=== PATIENT | female | born 1995 | race American Indian/Alaskan Native ===

== ENCOUNTER 2017-09-23 09:04 | Emergency (ER) | payer SELFPAY ==
[2017-09-23 12:18] LABS: Basophils % (Auto) 0.3 % (0.0-1.8); Eosinophils # (Auto) 0.1 K/mm3 (0.0-0.4); Hemoglobin 10.3 gm/dl (10.1-14.3); Lymphocytes # (Auto) 1.7 K/mm3 (1.2-5.4); Lymphocytes % (Auto) 23.6 % (13.4-35.0); Mean Corpuscular HGB Conc 33 % (30-34); Mean Corpuscular Hemoglobin 28 pg (28-32); Mean Corpuscular Volume 85 fl (79-97); Monocytes # (Auto) 0.4 K/mm3 (0.0-0.8); Monocytes % (Auto) 5.2 % (0.0-7.3); Platelet Count 176 K/mm3 (140-440); Red Blood Count 3.67 M/mm3 (3.65-5.03); Red Cell Distribution Width 14.3 % (13.2-15.2)
[2017-09-23 12:28] LABS: INR 0.93 (0.87-1.13)
[2017-09-23 12:29] LABS: Partial Thromboplastin Time 25.7 Sec. (24.2-36.6)
[2017-09-23] MEDS ORDERED: NACL 0.9% 1000 ML 1,000 ML IV ONE ×2 (12:40→13:12)
[2017-09-23 12:43] LABS: BUN/Creatinine Ratio 10; Blood Urea Nitrogen 5 mg/dL (7-17); Calcium 8.6 mg/dL (8.4-10.2); Creatine Kinase MB 1.6 ng/mL (0.0-4.0); Hemolysis Index 18
[2017-09-23 12:54] LABS: Free T4 (Free Thyroxine) 1.14 ng/dL (0.76-1.46)
[2017-09-23 13:41] LABS: Bacteria,Urine 1+ /HPF (Negative); Bilirubin,Urine NEG (Negative); Blood,Urine NEG (Negative); Color,Urine Yellow (Yellow); Mucus,Urine FEW /HPF; Protein,Urine <15 mg/dL mg/dL (Negative)
[2017-09-23] MEDS ORDERED: MACROBID PO ONE (13:50)
[2017-09-23 13:53] LABS: Amphetamine Screen,Urine PRESUMPTIVE NEGATIVE; Benzodiazepines Screen,Urine PRESUMPTIVE NEGATIVE; Cannabinoid Screen,Urine PRESUMPTIVE NEGATIVE; Cocaine Screen,Urine PRESUMPTIVE NEGATIVE; Methadone Screen,Urine PRESUMPTIVE NEGATIVE; Opiate Screen,Urine PRESUMPTIVE NEGATIVE
--- NOTE | 2017-09-23 14:34 | Ultrasound Report ---
FINAL REPORT EXAM: US OB > = 14 WEEKS FETUS HISTORY: no care TECHNIQUE: Obstetrical ultrasound was performed. PRIORS: None. FINDINGS: position is breech. Placental location is posterior. Negative for placenta previa. Negative for placental abruption. Amniotic fluid volume is normal. cardiac activity is identified, measured at 154 beats per minute. Measurements: BPD: 4.20 cm-18 weeks 5 days +/-12 days HC: 15.85 cm-18 weeks 5 days +/-10 days AC: 14.78 cm-20 weeks 0 days +/-14 days FL: 2.55 cm-17 weeks 5 days +/-10 days HC/AC: 1.07 (1.07-1.29) Avg age by US: 18 weeks 6 days which corresponds to ALEXANDER of 02/18/2018. Clinical age by LMP P (05/18/2017) is 18 weeks 2 days with ALEXANDER of 02/22/2018. Survey of anatomy: bladder, four-chamber heart, stomach, kidneys, ventricles, cerebellum/cisterna magna, diaphragm, three-vessel cord, cord insertion are documented in demonstrate no significant abnormality. Spine views are limited due to spine down position. The cervical length is normal at 3.9 cm. IMPRESSION: There is a single live intrauterine of approximately 8 weeks 6 days gestational age and ALEXANDER of 02/18/2018. Survey of anatomy demonstrates no significant abnormality. Spine views are limited due to spine down position.
--- NOTE | 2017-09-23 14:41 | Emergency Department Report ---
ED Palpitations HPI - General Chief Complaint: Arrhythmia/Palpitations Stated Complaint: HYPERTENSIVE Time Seen by Provider: 09/23/17 11:49 Source: patient Mode of arrival: Ambulatory Limitations: No Limitations - History of Present Illness Initial Comments: 22-year-old female presents to the hospital with her second approximately 4 weeks complaining of palpitations this morning. 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 While at school heart rate was noted to be fast and documented by RN in class however, she cannot recall the number. Pt stood up and took a couple of steps when symptoms began. Patient states she has had previous episodes of tachycardia that has spontaneously resolved with friends. She has not required any type of previous intubation. With this episode patient had associated shortness of breath and dizziness. Patient complains of intermittent vomiting associated with morning sickness but denies vaginal bleeding, dysuria, diarrhea, or persistent vomiting. Denies cp and sob prior to episode or currently. Patient had epistaxis from the left nare with palpitations earlier but bleeding has spontaneously resolved. No trauma reported. - Related Data Previous Rx's Medication Instructions Recorded Last Taken Type HYDROcodone/APAP 5-325 [[place] 1 each PO Q6HR PRN #12 tablet 10/06/13 Unknown Rx 5/325 mg] Nitrofurantoin [place]/M-Cryst 100 mg PO Q12HR #14 capsule 09/23/17 Unknown Rx [Macrobid CAP] Allergies Allergy/AdvReac Type Severity Reaction Status Date / Time No Known Allergies Allergy Verified 09/23/17 09:20 ED Review of Systems ROS: Stated complaint: HYPERTENSIVE Other details as noted in HPI Comment: All other systems reviewed and negative Other: Constitutional: No fevers chills or weight loss Eyes: No eye pain visual changes or discharge ENT: No ear pain or throat pain Neck: Denies pain Respiratory: Denies cough wheezing Cardiovascular: as per hpi GI: Denies abdominal pain, nausea, vomiting, diarrhea, constipation, melena hematochezia : Denies dysuria Musculoskeletal: Denies back pain, joint swelling Skin: Denies rash, lesions, erythema Neurologic: Denies headache, numbness, weakness Psychiatric: Denies suicidal ideation, hallucinations ED Past Medical Hx - Past Medical History Hx Hypertension: Yes ( induced htn) - Surgical History Past Surgical History?: No - Social History Smoking Status: Never Smoker Substance Use Type: None - Medications Home Medications: Home Medications Medication Instructions Recorded Confirmed Last Taken Type HYDROcodone/APAP 5-325 [[place] 1 each PO Q6HR PRN #12 tablet 10/06/13 Unknown Rx 5/325 mg] Nitrofurantoin [place]/M-Cryst 100 mg PO Q12HR #14 capsule 09/23/17 Unknown Rx [Macrobid CAP] ED Physical Exam - General Limitations: No Limitations - Other Other exam information: General: No limitations, patient is alert in no acute distress Head exam: Atraumatic, normocephalic Eyes exam: Normal appearance ENT: Moist mucous membrane, normal oropharynx Neck exam: Normal inspection, full range of motion Respiratory exam: Clear to auscultation bilateral, no wheezes, rales, crackles Cardiovascular: Normal rate and rhythm, normal heart sounds Abdomen: Soft, nondistended, and nontender, with normal bowel sounds, no rebound, or guarding Extremity: Full range of motion normal inspection no deformity, no calf tendernes/edema Back: Normal Inspection, full range of motion, no tenderness Neurologic: Alert, oriented x3, cranial nerves intact, no motor or sensory deficit Psychiatric: normal affect, normal mood Skin: Warm, dry, intact ED Course Vital Signs 09/23/17 09/23/17 09/23/17 09:21 12:01 12:10 Temperature 98.5 F Pulse Rate 81 Pulse Rate [ Lying] Pulse Rate [ Sitting] Pulse Rate [ Standing] Respiratory 18 Rate Blood Pressure 123/76 Blood Pressure [Lying] Blood Pressure [Sitting] Blood Pressure [Standing] O2 Sat by Pulse 100 100 100 Oximetry 09/23/17 09/23/17 09/23/17 12:11 12:14 12:16 Temperature Pulse Rate 101 H Pulse Rate [ 94 H Lying] Pulse Rate [ 103 H Sitting] Pulse Rate [ Standing] Respiratory 22 Rate Blood Pressure 129/74 Blood Pressure 116/60 [Lying] Blood Pressure 129/74 [Sitting] Blood Pressure [Standing] O2 Sat by Pulse 100 Oximetry 09/23/17 09/23/17 09/23/17 12:17 12:30 12:46 Temperature Pulse Rate 102 H 98 H Pulse Rate [ Lying] Pulse Rate [ Sitting] Pulse Rate [ 133 H Standing] Respiratory 21 21 Rate Blood Pressure 121/64 121/64 Blood Pressure [Lying] Blood Pressure [Sitting] Blood Pressure 133/88 [Standing] O2 Sat by Pulse 100 100 Oximetry 09/23/17 09/23/17 09/23/17 13:00 14:47 15:00 Temperature Pulse Rate 105 H Pulse Rate [ Lying] Pulse Rate [ Sitting] Pulse Rate [ Standing] Respiratory 25 H Rate Blood Pressure 121/60 117/70 Blood Pressure [Lying] Blood Pressure [Sitting] Blood Pressure [Standing] O2 Sat by Pulse 100 99 99 Oximetry 09/23/17 09/23/17 09/23/17 15:16 15:30 15:46 Temperature Pulse Rate Pulse Rate [ Lying] Pulse Rate [ Sitting] Pulse Rate [ Standing] Respiratory Rate Blood Pressure 121/60 122/64 122/64 Blood Pressure [Lying] Blood Pressure [Sitting] Blood Pressure [Standing] O2 Sat by Pulse 100 100 100 Oximetry ED Medical Decision Making - Lab Data Result diagrams: 09/23/17 12:05 09/23/17 12:05 Lab Results 09/23/17 09/23/17 09/23/17 Range/Units 12:05 12:05 12:05 WBC 7.2 (4.5-11.0) K/mm3 RBC 3.67 (3.65-5.03) M/mm3 Hgb 10.3 (10.1-14.3) gm/dl Hct 31.0 (30.3-42.9) % MCV 85 (79-97) fl MCH 28 (28-32) pg MCHC 33 (30-34) % RDW 14.3 (13.2-15.2) % Plt Count 176 (140-440) K/mm3 Lymph % (Auto) 23.6 (13.4-35.0) % [place] % (Auto) 5.2 (0.0-7.3) % Eos % (Auto) 1.0 (0.0-4.3) % Baso % (Auto) 0.3 (0.0-1.8) % Lymph # 1.7 (1.2-5.4) K/mm3 [place] # 0.4 (0.0-0.8) K/mm3 Eos # 0.1 (0.0-0.4) K/mm3 Baso # 0.0 (0.0-0.1) K/mm3 Seg Neutrophils % 69.9 (40.0-70.0) % Seg Neutrophils # 5.0 (1.8-7.7) K/mm3 PT 12.9 (12.2-14.9) Sec. INR 0.93 (0.87-1.13) APTT 25.7 (24.2-36.6) Sec. Sodium 137 (137-145) mmol/L Potassium 3.7 (3.6-5.0) mmol/L Chloride 102.8 (98-107) mmol/L Carbon Dioxide 23 (22-30) mmol/L Anion Gap 15 mmol/L BUN 5 L (7-17) mg/dL Creatinine 0.5 L (0.7-1.2) mg/dL Estimated GFR > 60 ml/min BUN/Creatinine Ratio 10 % Glucose 83 (65-100) mg/dL Calcium 8.6 (8.4-10.2) mg/dL Magnesium 1.70 (1.7-2.3) mg/dL Total Creatine Kinase 83 (30-135) units/L CK-MB (CK-2) 1.6 (0.0-4.0) ng/mL CK-MB (CK-2) Rel Index 1.9 (0-4) Troponin T < 0.010 (0.00-0.029) ng/mL TSH (0.270-4.200) mlU/mL Free T4 (0.76-1.46) ng/dL HCG, Quant (0-4) mIU/mL Urine Color (Yellow) Urine Turbidity (Clear) Urine pH (5.0-7.0) Ur Specific [place] (1.003-1.030) Urine Protein (Negative) mg/dL Urine Glucose (UA) (Negative) mg/dL Urine Ketones (Negative) mg/dL Urine Blood (Negative) Urine Nitrite (Negative) Urine Bilirubin (Negative) Urine Urobilinogen (<2.0) mg/dL Ur Leukocyte Esterase (Negative) Urine WBC (Auto) (0.0-6.0) /HPF Urine RBC (Auto) (0.0-6.0) /HPF U Epithel Cells (Auto) (0-13.0) /HPF Urine Bacteria (Auto) (Negative) /HPF Urine Mucus /HPF Urine Opiates Screen Urine Methadone Screen Ur Barbiturates Screen Ur Phencyclidine Scrn Ur Amphetamines Screen U Benzodiazepines Scrn Urine Cocaine Screen U Marijuana (THC) Screen Drugs of Abuse Note 0309/23/17 09/23/17 Range/Units 12:05 13:15 13:15 WBC (4.5-11.0) K/mm3 RBC (3.65-5.03) M/mm3 Hgb (10.1-14.3) gm/dl Hct (30.3-42.9) % MCV (79-97) fl MCH (28-32) pg MCHC (30-34) % RDW (13.2-15.2) % Plt Count (140-440) K/mm3 Lymph % (Auto) (13.4-35.0) % Hendricks % (Auto) (0.0-7.3) % Eos % (Auto) (0.0-4.3) % Baso % (Auto) (0.0-1.8) % Lymph # (1.2-5.4) K/mm3 [place] # (0.0-0.8) K/mm3 Eos # (0.0-0.4) K/mm3 Baso # (0.0-0.1) K/mm3 Seg Neutrophils % (40.0-70.0) % Seg Neutrophils # (1.8-7.7) K/mm3 PT (12.2-14.9) Sec. INR (0.87-1.13) APTT (24.2-36.6) Sec. Sodium (137-145) mmol/L Potassium (3.6-5.0) mmol/L Chloride (98-107) mmol/L Carbon Dioxide (22-30) mmol/L Anion Gap mmol/L BUN (7-17) mg/dL Creatinine (0.7-1.2) mg/dL Estimated GFR ml/min BUN/Creatinine Ratio % Glucose (65-100) mg/dL Calcium (8.4-10.2) mg/dL Magnesium (1.7-2.3) mg/dL Total Creatine Kinase (30-135) units/L CK-MB (CK-2) (0.0-4.0) ng/mL CK-MB (CK-2) Rel Index (0-4) Troponin T (0.00-0.029) ng/mL TSH 0.945 (0.270-4.200) mlU/mL Free T4 1.14 (0.76-1.46) ng/dL HCG, Quant 23541 H (0-4) mIU/mL Urine Color Yellow (Yellow) Urine Turbidity Clear (Clear) Urine pH 6.0 (5.0-7.0) Ur Specific [place] 1.014 (1.003-1.030) Urine Protein <15 mg/dl (Negative) mg/dL Urine Glucose (UA) Neg (Negative) mg/dL Urine Ketones Neg (Negative) mg/dL Urine Blood Neg (Negative) Urine Nitrite Neg (Negative) Urine Bilirubin Neg (Negative) Urine Urobilinogen 4.0 (<2.0) mg/dL Ur Leukocyte Esterase Mod (Negative) Urine WBC (Auto) 11.0 H (0.0-6.0) /HPF Urine RBC (Auto) 3.0 (0.0-6.0) /HPF U Epithel Cells (Auto) 1.0 (0-13.0) /HPF Urine Bacteria (Auto) 1+ (Negative) /HPF Urine Mucus Few /HPF Urine Opiates Screen Presumptive negative Urine Methadone Screen Presumptive negative Ur Barbiturates Screen Presumptive negative Ur Phencyclidine Scrn Presumptive negative Ur Amphetamines Screen Presumptive negative U Benzodiazepines Scrn Presumptive negative Urine Cocaine Screen Presumptive negative U Marijuana (THC) Screen Presumptive negative Drugs of Abuse Note Disclamer - Radiology Data Radiology results: report reviewed ultrasound, 18 weeks 6 days. Positive heart tones. Heart rate 154 - Medical Decision Making Palpitations Associated with standing Positive orthostatic vital signs Patient received 2 L of normal saline with improvement UTI Mild urine leukocytosis Macrobid provided Urine culture pending No care 18 week 6 day IUP identified on ultrasound No vaginal bleeding reported Other labs unremarkable Plan to discharge home to continue her vitamins, Macrobid, and ANIMAL TECH/OB follow-up - Differential Diagnosis dehydration, anemia, infection, orthostasis, PE, arrhythmia, thyroid Critical Care Time: No Critical care attestation.: If time is entered above; I have spent that time in minutes in the direct care of this critically ill patient, excluding procedure time. ED Disposition Clinical Impression: 18 weeks gestation of , UTI (urinary tract infection), Orthostasis Disposition: DC-01 TO HOME OR SELFCARE Is pt being admited?: No Does the pt Need Aspirin: No Condition: Stable Instructions: Palpitations (ED), (ED), Dehydration (ED) Additional Instructions: Take the antibiotic as prescribed. Continue drinking plenty of fluids. Follow BRIM STIFFENER doctor provided or with the doctor of your choice. Return is worsen as indicated by your discharge instructions Prescriptions: Nitrofurantoin [place]/M-Cryst [Macrobid CAP] 100 mg PO Q12HR #14 capsule Referrals: BRIE BRANHAM MD [Staff Physician] - 3-5 Days Time of Disposition: 15:53
[2017-09-23 15:52] VITALS: BP 122/64
== END 2017-09-23 16:31 | disposition home or self-care (01) ==
LOC: ED 09:04
DX: O13.2 Gestational [pregnancy-induced] hypertension without significant proteinuria, second trimester (principal); O23.42 Unspecified infection of urinary tract in pregnancy, second trimester; Z3A.18 18 weeks gestation of pregnancy; Z79.899 Other long term (current) drug therapy
CPT/HCPCS: 36415; 76805; 80048; 80307; 81001; 82550; 82553; 83735; 84439; 84443; 84484; 84702; 85025; 85610; 85730; 87086; 93005; 93010; 96360; 96361; 99284; J7030

== ENCOUNTER 2019-05-07 16:01 | Emergency (ER) | payer SELFPAY ==
[2019-05-07 17:27] VITALS: BP 112/62
--- NOTE | 2019-05-07 17:30 | Emergency Department Report ---
[place] [facility] Chief Complaint: Eye Problems Stated Complaint: POS PINK EYE Time Seen by Provider: 05/07/19 17:25 Duration: 1 Day Side: Left Severity: moderate Symptoms: Yes Eye Itching (left), Yes Eye Redness (left), Yes Blurred Vision, No Eye Pain, No Mucous Drainage, No Purulent Drainage, No Preceding URI, No H/O Allergic Rhinitis, No Contact Lens Use, No Trauma, No Fever, No Headache Other History: This is a 23-year-old female nontoxic well in appearance with no signs of distress presents to the ED with left eye crusting and itching with redness for 1 day. No one else in home with similar symptoms. Patient denies any eye pain or foreign body sensation. Patient denies any other symptoms. Denies any fever, chills, headache, nausea, vomiting, chest pain or SOB. Denies any other complaints. Denies any allergies. ED Review of Systems ROS: Stated complaint: POS PINK EYE Other details as noted in HPI Constitutional: denies: chills, fever Eyes: eye discharge (left). denies: eye pain, vision change ENT: denies: ear pain, throat pain Respiratory: denies: cough, shortness of breath, wheezing Cardiovascular: denies: chest pain, palpitations Gastrointestinal: denies: abdominal pain, nausea, diarrhea Skin: denies: rash, lesions Neurological: denies: headache, weakness, paresthesias Psychiatric: denies: anxiety, depression ED Past Medical Hx - Past Medical History Previous Medical History?: No Hx Hypertension: Yes ( induced htn) - Surgical History Past Surgical History?: No - Social History Smoking Status: Never Smoker Substance Use Type: None - Medications Home Medications: Home Medications Medication Instructions Recorded Confirmed Last Taken Type HYDROcodone/APAP 5-325 [[place] 1 each PO Q6HR PRN #12 tablet 10/06/13 Unknown Rx 5/325 mg] Nitrofurantoin [place]/M-Cryst 100 mg PO Q12HR #14 capsule 09/23/17 Unknown Rx [Macrobid CAP] Erythromycin [Erythromycin Ophth 10 applic OP Q6H 7 Days #1 tube 05/07/19 Unknown Rx Oint] [place] [facility] Exam - Exam General: Vital signs noted. No distress. Alert and acting appropriately. Eye Exam: Left Injection, Left Mucous Discharge, Both EOMI, Neither Chemosis, Neither Abnormal Pupil, Neither Eye Foreign Body, Neither Lid Foreign Body, Neither Purulent Discharge, Neither Fluorescein Uptake, Neither Fluorescein Uptake (slit lamp), Neither Cell/Flare (slit lamp), Neither Corneal Edema, Neither Photophobia HEENT: No Nasal Congestion, No Pharyngeal Erythema Remainder of HEENT: Normal Lungs: Yes Clear Lung Sounds, Yes Good Air Exchange, No Wheezes, No Stridor, No Cough, No Nasal Flaring, No Retractions, No Use of Accessory Muscles ED Medical Decision Making - Medical Decision Making Patient is stable and was examined by me. Left eye is susceptible of conjunctivitis. Denies visual changes or grinding sensation. PEERL. Start erythromycin ointment. Patient was instructed to Follow-up with a primary care doctor in 3-5 days or if symptoms worsen and continue return to emergency room as soon as possible. At time of discharge, the patient does not seem toxic or ill in appearance. No acute signs of distress noted. Patient agrees to discharge treatment plan of care. No further questions noted by the patient. Critical care attestation.: If time is entered above; I have spent that time in minutes in the direct care of this critically ill patient, excluding procedure time. ED Disposition Clinical Impression: Conjunctivitis Qualifiers: Conjunctivitis type: acute Acute conjunctivitis type: bacterial Laterality: left Qualified Code(s): H10.32 - Unspecified acute conjunctivitis, left eye Disposition: DC-01 TO HOME OR SELFCARE Is pt being admited?: No Does the pt Need Aspirin: No Condition: Stable Instructions: Conjunctivitis (ED) Additional Instructions: Apply cool compress for comfort. Prescriptions: Erythromycin [Erythromycin Ophth Oint] 10 applic OP Q6H 7 Days #1 tube Referrals: [facility] [Outside] - 3-5 Days [facility] [Outside] - 3-5 Days [facility] [Outside] - 3-5 Days Forms: Work/School Release Form(ED) Time of Disposition: 18:08
== END 2019-05-07 18:17 | disposition home or self-care (01) ==
LOC: ED 16:01
DX: H10.32 Unspecified acute conjunctivitis, left eye (principal); I10 Essential (primary) hypertension
CPT/HCPCS: 99282

== ENCOUNTER 2019-12-31 15:29 | Emergency (ER) | payer BC ==
[2019-12-31 15:38] VITALS: BP 118/71
== END 2019-12-31 17:00 | disposition home or self-care (01) ==
LOC: ED 15:29
DX: R07.89 Other chest pain (principal); F43.9 Reaction to severe stress, unspecified; I10 Essential (primary) hypertension; Z79.2 Long term (current) use of antibiotics; Z79.899 Other long term (current) drug therapy
CPT/HCPCS: 99282

== ENCOUNTER 2020-05-04 00:59 | Outpatient (CLI) | payer BC ==
[2020-05-04 02:11] VITALS: BP 111/55
[2020-05-04] MEDS ORDERED: LACTATED RINGERS 1,000 ML IV ONE (02:31)
[2020-05-04] MEDS ORDERED: ceFAZolin/Water 2 GM/20 ML 2 GM/20 ML SYRINGE IV ONE (02:43)
[2020-05-04] MEDS ORDERED: ceFAZolin/STERILE WATER 2 GM/20 ML SYRINGE IV ONE (02:46)
== END 2020-05-04 04:43 | disposition home or self-care (01) ==
LOC: TRG 00:59 → APU 01:00 → TRG 04:43
PROVIDERS: ATTEND Obstetrics & Gynecology
DX: O26.892 Other specified pregnancy related conditions, second trimester (principal); R30.9 Painful micturition, unspecified; O13.2 Gestational [pregnancy-induced] hypertension without significant proteinuria, second trimester; O47.02 False labor before 37 completed weeks of gestation, second trimester; Z3A.26 26 weeks gestation of pregnancy
CPT/HCPCS: 59025; 96361; 96374; J0690; J7120

== ENCOUNTER 2020-07-12 10:45 | Emergency (ER) | payer BC ==
[2020-07-12] MEDS ORDERED: LIDOCAINE (2%) 20 MG/1 ML VIAL 20 ML MDV INFILTRATI STA (11:14)
[2020-07-12 11:15] VITALS: BP 134/88
--- NOTE | 2020-07-12 11:37 | Emergency Department Report ---
Upper Extremity - HPI Chief Complaint: Wound/Laceration Stated Complaint: LFT FINGER LAC/PAIN Time Seen by Provider: 07/12/20 11:14 Upper Extremity: Left Middle Finger Occurred When: Today Mechanism: Other (with sharp edge (accident)) Severity: mild Symptoms: Yes Pain with Movement, No Limited Range of Movement ED Review of Systems ROS: Stated complaint: LFT FINGER LAC/PAIN Other details as noted in HPI Comment: All other systems reviewed and negative ED Past Medical Hx - Past Medical History Previous Medical History?: Yes Hx Hypertension: Yes ( induced htn) Hx Diabetes: No Hx Deep Vein Thrombosis: No Hx Renal Disease: No Hx Sickle Cell Disease: No Hx Seizures: No Hx Asthma: No Hx HIV: No Additional medical history: vaginal delivery - Surgical History Past Surgical History?: No - Social History Smoking Status: Never Smoker Substance Use Type: None - Medications Home Medications: Home Medications Medication Instructions Recorded Confirmed Last Taken Type HYDROcodone/APAP 5-325 [[place] 1 each PO Q6HR PRN #12 tablet 10/06/13 Unknown Rx 5/325 mg] Nitrofurantoin [place]/M-Cryst 100 mg PO Q12HR #14 capsule 09/23/17 Unknown Rx [Macrobid CAP] Erythromycin [Erythromycin Ophth 10 applic OP Q6H 7 Days #1 tube 05/07/19 Unknown Rx Oint] Chlorhexidine Gluconate 5 ml TP BID #120 liquid 07/12/20 Unknown Rx [Antiseptic Skin Cleanser] Upper Extremity Exam - Exam General: Vital signs noted. No distress. Alert and acting appropriately. Head and Torso: No HEENT Abnormality, No Neck Tenderness, No Chest/Lungs Abnormality, No Abdominal Tenderness, No Back Tenderness Shoulder Exam: Yes Normal Range of Motion in Shoulder, No Shoulder Tenderness, No Clavicle Tenderness, No Shoulder Deformity, No AC Joint Tenderness Arm Exam: No Arm/Humerus Tenderness, No Arm Deformity Elbow: No Elbow Tenderness, No Normal Range of Motion in Elbow, No Elbow Deformity Forearm: No Forearm Tenderness, No Forearm Deformity, No Pain with Pronation, No Pain with Supination Wrist: Yes Normal ROM in Wrist, No Wrist Tenderness, No Wrist Deformity, No Snuffbox Tenderness, No Pain with Axial Thumb Compression Hand: Yes Hand Tenderness, Yes Normal ROM in Digit(s), No Hand Deformity, No Digit Tenderness, No Digit(s) Deformity, No Tendon Dysfunction CMS Exam: No Broken Skin, No Normal Distal Pulses, No Normal Capillary Refill, No Normal Distal Sensation Hand L/R Front: 1 - 2cm laceration ED Course Vital Signs 07/12/20 11:09 Temperature 98.2 F Pulse Rate 78 Respiratory 20 Rate Blood Pressure 134/88 O2 Sat by Pulse 97 Oximetry - Procedure Description Procedures done: Laceration repair third digit hand. Area prepped and draped in sterile fashion anesthesia achieved with 2% lidocaine with epinephrine for Prolene was placed evaluate the fashion x2 for wound closure with good wound approximation as in the procedure tolerated well estimated blood loss was less than 2 cc it was a 1 layer closure Critical care attestation.: If time is entered above; I have spent that time in minutes in the direct care of this critically ill patient, excluding procedure time. ED Disposition Clinical Impression: Finger laceration Disposition: DC-01 TO HOME OR SELFCARE Is pt being admited?: No Does the pt Need Aspirin: No Condition: Stable Instructions: Laceration Care, Adult, Sutured Wound Care Additional Instructions: Please follow-up in 7 days for wound evaluation and possible suture removal sutures may stay in for period of 10 days Prescriptions: Chlorhexidine Gluconate [Antiseptic Skin Cleanser] 5 ml TP BID #120 liquid Referrals: [facility] [Provider Group] - 3-5 Days
== END 2020-07-12 12:03 | disposition home or self-care (01) ==
LOC: ED 10:45
DX: S61.213A Laceration without foreign body of left middle finger without damage to nail, initial encounter (principal); I10 Essential (primary) hypertension; Z79.899 Other long term (current) drug therapy; X58.XXXA Exposure to other specified factors, initial encounter; Y93.89 Activity, other specified; Y92.89 Other specified places as the place of occurrence of the external cause; Y99.8 Other external cause status
CPT/HCPCS: 99282